=== PATIENT | female | born 1985 | race Caucasian/White ===

== ENCOUNTER 2018-09-23 08:47 | Emergency (ER) | payer OTHER ==
[~2018-09-23] VITALS: Ht 175.3 cm; Wt 118.2 kg
[2018-09-23 08:54] VITALS: BP 135/84
[2018-09-23] MEDS ORDERED: KETOROLAC 60 MG/2 ML VIAL IM ONE (09:15)
[2018-09-23 09:38] VITALS: BP 133/81
== END 2018-09-23 09:38 | disposition home or self-care (01) ==
LOC: MED 08:47
DX: J11.1 Influenza due to unidentified influenza virus with other respiratory manifestations (principal); J32.1 Chronic frontal sinusitis; I10 Essential (primary) hypertension; Z90.49 Acquired absence of other specified parts of digestive tract; Z88.1 Allergy status to other antibiotic agents; Z88.0 Allergy status to penicillin; Z88.2 Allergy status to sulfonamides
CPT/HCPCS: 96372; 99283; J1885

== ENCOUNTER 2019-07-13 17:14 | Emergency (ER) | payer OTHER ==
[~2019-07-13] VITALS: Ht 177.8 cm; Wt 118.8 kg
[2019-07-13 17:45] VITALS: BP 152/112
--- NOTE | 2019-07-13 18:35 | NUR ---
PT AMBULATED TO ER CHAIR C
--- NOTE | 2019-07-13 18:37 | NUR ---
C/O LOWER BACK PAIN X TODAY---DENIES RECENT INJURY PT STATED PT INITIATED WHILE SEATED AT WORK---AMBULATORY WITH STEADY GAIT
--- NOTE | 2019-07-13 18:55 | NUR ---
PA WITH PT
[2019-07-13] MEDS ORDERED: KETOROLAC 60 MG/2 ML VIAL IM ONE (19:00)
--- NOTE | 2019-07-13 19:38 | NUR ---
Patient discharged with v/s stable. Written and verbal after care instructions given and explained. Patient alert, oriented and verbalized understanding of instructions. Ambulatory with steady gait. All questions addressed prior to discharge. ID band removed. Patient advised to follow up with PMD. Rx of FLEXERIL, MOTRIN, MEDROL given. Patient educated on indication of medication including possible reaction and side effects. Opportunity to ask questions provided and answered.
[2019-07-13 19:39] VITALS: BP 155/98
== END 2019-07-13 19:39 | disposition home or self-care (01) ==
LOC: MED 17:14
DX: M54.6 Pain in thoracic spine (principal); I10 Essential (primary) hypertension; Z88.1 Allergy status to other antibiotic agents; Z88.0 Allergy status to penicillin; Z88.2 Allergy status to sulfonamides
CPT/HCPCS: 81002; 81025; 96372; 99283; J1885

== ENCOUNTER 2022-06-16 10:35 | Emergency (ER) | payer OTHER ==
[~2022-06-16] VITALS: Ht 172.7 cm; Wt 77.1 kg
[2022-06-16 10:40] VITALS: BP 136/67
[2022-06-16 10:47] VITALS: BP 136/67
[2022-06-16] MEDS ORDERED: MORPHINE SULFATE 4 MG/ML SYR IVP ONE (10:55)
[2022-06-16] MEDS ORDERED: KETOROLAC 30 MG/ML VIAL IVP ONE (10:55)
[2022-06-16 11:10] LABS: BASOPHILS # (AUTO) 0.1 K/uL (0.00-0.22); BASOPHILS % (AUTO) 0.8 % (0.0-2.0); EOSINOPHILS # (AUTO) 0.2 K/uL (0-0.4); EOSINOPHILS % (AUTO) 2.3 % (0.0-4.0); HEMATOCRIT 37.7 % (36-48); HEMOGLOBIN 12.7 g/dL (12.0-16.0); LYMPHOCYTES # (AUTO) 2.3 K/uL (2.5-16.5); LYMPHOCYTES % (AUTO) 29.3 % (20.5-51.1); MEAN CORPUSCULAR HEMOGLOBIN 29 pg (27-31); MEAN CORPUSCULAR HGB CONC 34 g/dL (33-37); MEAN CORPUSCULAR VOLUME 85.1 fL (80-94); MONOCYTES # (AUTO) 0.6 K/uL (0.8-1.0); MONOCYTES % (AUTO) 7.3 % (1.7-9.3); NEUTROPHILS # (AUTO) 4.7 K/uL (1.8-7.7); NEUTROPHILS % (AUTO) 60.3 % (42.2-75.2); PLATELET COUNT (AUTO) 440 K/uL (140-450); RED BLOOD CELL COUNT(AUTO) 4.43 MIL/uL (4.20-5.40); RED CELL DISTRIBUTION WIDTH 13.9 % (11.6-13.7); WHITE BLOOD COUNT (AUTO) 7.9 K/uL (4.8-10.8)
[2022-06-16 11:33] LABS: ALBUMIN 3.3 g/dL (3.4-5.0); ANION GAP 12.9 (8-16); ASPARTATE AMINOTRANSFERASE 32 U/L (15-37); CARBON DIOXIDE 28.4 mmol/L (21-32); CHLORIDE 105 mmol/L (98-107); CREATININE 0.7 mg/dL (0.6-1.3); GFR ARICAN-AMERICAN 122 mL/min (>90); GLUCOSE 112 mg/dL (74-106); POTASSIUM 4.3 mmol/L (3.5-5.1); SODIUM SERUM 142 mmol/L (136-145); TOTAL BILIRUBIN 0.2 mg/dL (0.0-1.0); UREA NITROGEN, BLOOD 16 mg/dL (7-18)
[2022-06-16] MEDS ORDERED: ACET-8386 PO (12:00)
[2022-06-16] MEDS ORDERED: OMEP40EC23 PO (12:00)
[2022-06-16] MEDS ORDERED: IBUP-2213 PO (12:00)
== END 2022-06-16 12:05 | disposition home or self-care (01) ==
LOC: MED 10:35
DX: N83.201 Unspecified ovarian cyst, right side (principal); I10 Essential (primary) hypertension; Z88.8 Allergy status to other drugs, medicaments and biological substances; Z88.0 Allergy status to penicillin; Z88.1 Allergy status to other antibiotic agents; Z88.2 Allergy status to sulfonamides; Z90.49 Acquired absence of other specified parts of digestive tract; Z98.890 Other specified postprocedural states
CPT/HCPCS: 36415; 74176; 80053; 81002; 81025; 83690; 84702; 85025; 96374; 99284; J2270

== ENCOUNTER 2022-06-20 07:43 | Emergency (ER) | payer OTHER ==
[~2022-06-20] VITALS: Ht 177.8 cm; Wt 83.9 kg
[~2022-06-20 07:43] MED LIST: ACET-8386 PO; IBUP-2213 PO; OMEP40EC23 PO
[2022-06-20 07:56] VITALS: BP 147/70
--- NOTE | 2022-06-20 07:59 | NUR ---
PT C/O EPIGASTRIC PAIN RADIATING TO BACK SINCE THIS AM. SEEN FRIDAY IN ED WITH SAME COMPLAINT.
[2022-06-20] MEDS ORDERED: FAMOTIDINE 20 MG/2 ML VIAL IVP ONE (08:00)
[2022-06-20] MEDS ORDERED: NACL 0.9% 1,000 ML IV SCH (08:00)
[2022-06-20] MEDS ORDERED: KETOROLAC 15 MG/ML VIAL IVP ONE (08:00)
[2022-06-20] MEDS ORDERED: MORPHINE SULFATE 4 MG/ML SYR IVP ONE (08:00)
[2022-06-20] MEDS ORDERED: NACL 0.9% 1,000 ML IV ONE (08:05)
[2022-06-20 08:33] LABS: BASOPHILS # (AUTO) 0.1 K/uL (0.00-0.22); BASOPHILS % (AUTO) 1.2 % (0.0-2.0); EOSINOPHILS # (AUTO) 0.2 K/uL (0-0.4); EOSINOPHILS % (AUTO) 2.1 % (0.0-4.0); HEMATOCRIT 37.6 % (36-48); HEMOGLOBIN 12.6 g/dL (12.0-16.0); LYMPHOCYTES # (AUTO) 2.7 K/uL (2.5-16.5); LYMPHOCYTES % (AUTO) 30.4 % (20.5-51.1); MEAN CORPUSCULAR HEMOGLOBIN 29 pg (27-31); MEAN CORPUSCULAR HGB CONC 34 g/dL (33-37); MEAN CORPUSCULAR VOLUME 85.8 fL (80-94); MONOCYTES # (AUTO) 0.7 K/uL (0.8-1.0); MONOCYTES % (AUTO) 7.4 % (1.7-9.3); NEUTROPHILS # (AUTO) 5.2 K/uL (1.8-7.7); NEUTROPHILS % (AUTO) 58.9 % (42.2-75.2); PLATELET COUNT (AUTO) 425 K/uL (140-450); RED BLOOD CELL COUNT(AUTO) 4.38 MIL/uL (4.20-5.40); RED CELL DISTRIBUTION WIDTH 14.3 % (11.6-13.7); WHITE BLOOD COUNT (AUTO) 8.9 K/uL (4.8-10.8)
[2022-06-20 08:54] LABS: ALBUMIN 3.1 g/dL (3.4-5.0); ANION GAP 11.6 (8-16); CARBON DIOXIDE 27.6 mmol/L (21-32); CREATININE 0.6 mg/dL (0.6-1.3); POTASSIUM 4.2 mmol/L (3.5-5.1); TOTAL BILIRUBIN 0.2 mg/dL (0.0-1.0)
--- NOTE | 2022-06-20 09:54 | NUR ---
PT BACK FROM CT
[2022-06-20] MEDS ORDERED: [UNRECOGNIZED DRUG - CODE] PO (10:33)
[2022-06-20] MEDS ORDERED: ACET500C86 PO (10:33)
[2022-06-20] MEDS ORDERED: OMEP40EC23 PO (10:33)
[2022-06-20 10:43] VITALS: BP 121/70
--- NOTE | 2022-06-20 10:44 | NUR ---
Patient discharged with v/s stable. Written and verbal after care instructions given and explained. Patient alert, oriented and verbalized understanding of instructions. Ambulatory with steady gait. All questions addressed prior to discharge. ID band removed. Patient advised to follow up with PMD. Rx of TYLENOL, PRILOSEC given. Patient educated on indication of medication including possible reaction and side effects. Opportunity to ask questions provided and answered.
[2022-06-20 11:20] LABS: BARBITURATE, URINE NEGATIVE ng/ml (NEG <=200); BENZODIAZEPINE, URINE NEGATIVE ng/mL (NEG <=200); CANNABINOID, URINE NEGATIVE ng/mL (NEG <=50); COCAINE, URINE NEGATIVE ng/mL (NEG <=300); OPIATE, URINE NEGATIVE ng/mL (NEG <=2000); PHENCYCLIDINE SCREEN,URINE NEGATIVE ng/mL (NEG <=25)
== END 2022-06-20 10:43 | disposition home or self-care (01) ==
LOC: MED 07:43
DX: N83.201 Unspecified ovarian cyst, right side (principal); K29.70 Gastritis, unspecified, without bleeding; I10 Essential (primary) hypertension; Z88.0 Allergy status to penicillin; Z88.8 Allergy status to other drugs, medicaments and biological substances; Z88.1 Allergy status to other antibiotic agents; Z88.2 Allergy status to sulfonamides; Z79.899 Other long term (current) drug therapy
CPT/HCPCS: 36415; 71045; 71275; 74174; 76856; 80053; 80305; 81025; 83690; 84702; 85025; 93976; 96361; 96374; 96375; 99285; J1885; J2270; J3490; J7030; Q0092; Q9967

== ENCOUNTER 2022-11-21 21:24 | Emergency (ER) | payer OTHER ==
[~2022-11-21] VITALS: Ht 177.8 cm; Wt 90.7 kg
[~2022-11-21 21:24] MED LIST changes: -ACET-8386 PO; +ACET-8905 PO; +ACET500C86 PO; +[UNRECOGNIZED DRUG - CODE] PO
[2022-11-21 21:25] VITALS: BP 134/88
[2022-11-21] MEDS ORDERED: ACETAMINOPHEN 325 MG TAB PO ONE (21:40)
[2022-11-21] MEDS ORDERED: FAMOTIDINE 20 MG TAB PO ONE (21:40)
[2022-11-21] MEDS ORDERED: ALUMINUM HYD/MAG/SIMETHICONE 30 ML UDC PO ONE (21:40)
[2022-11-21 22:04] LABS: BASOPHILS % (AUTO) 0.4 % (0.0-2.0); EOSINOPHILS # (AUTO) 0.1 K/uL (0-0.4); EOSINOPHILS % (AUTO) 0.8 % (0.0-4.0); HEMATOCRIT 38.4 % (36-48); HEMOGLOBIN 12.9 g/dL (12.0-16.0); LYMPHOCYTES # (AUTO) 3.1 K/uL (2.5-16.5); LYMPHOCYTES % (AUTO) 40.6 % (20.5-51.1); MEAN CORPUSCULAR HEMOGLOBIN 28 pg (27-31); MEAN CORPUSCULAR HGB CONC 34 g/dL (33-37); MEAN CORPUSCULAR VOLUME 82.2 fL (80-94); MONOCYTES # (AUTO) 0.5 K/uL (0.8-1.0); MONOCYTES % (AUTO) 6.9 % (1.7-9.3); NEUTROPHILS # (AUTO) 3.9 K/uL (1.8-7.7); NEUTROPHILS % (AUTO) 51.3 % (42.2-75.2); PLATELET COUNT (AUTO) 434 K/uL (140-450); RED BLOOD CELL COUNT(AUTO) 4.67 MIL/uL (4.20-5.40); RED CELL DISTRIBUTION WIDTH 15.3 % (11.6-13.7); WHITE BLOOD COUNT (AUTO) 7.6 K/uL (4.8-10.8)
[2022-11-21 22:19] LABS: ANION GAP 9.6 (8-16); CARBON DIOXIDE 30.2 mmol/L (21-32); CREATININE 0.8 mg/dL (0.6-1.3); POTASSIUM 3.8 mmol/L (3.5-5.1)
[2022-11-21 22:31] LABS: ALBUMIN 3.8 g/dL (3.4-5.0); TOTAL BILIRUBIN 0.3 mg/dL (0.0-1.0)
[2022-11-21] MEDS ORDERED: ACETAMINOPHEN 325 MG TAB ONE (22:45)
[2022-11-21] MEDS ORDERED: ALUMINUM HYD/MAG/SIMETHICONE 30 ML UDC ONE (22:46)
[2022-11-21] MEDS ORDERED: FAMOTIDINE 20 MG TAB ONE (22:47)
[2022-11-21] MEDS ORDERED: FAMO-90 PO (23:43)
[2022-11-21] MEDS ORDERED: ONDA-188 SL (23:43)
[2022-11-21 23:51] VITALS: BP 134/88
--- NOTE | 2022-11-21 23:51 | NUR ---
Patient discharged with v/s stable. Written and verbal after care instructions given and explained. Patient alert, oriented and verbalized understanding of instructions. Ambulatory with steady gait. All questions addressed prior to discharge. ID band removed. Patient advised to follow up with PMD. Rx of PEPCID AND ZOFRAN given. Patient educated on indication of medication including possible reaction and side effects. Opportunity to ask questions provided and answered.
--- NOTE | 2022-11-21 23:53 | NUR ---
PT VERBALIZED SHE IS UPSET WITH TREATMENT. I ASKED PT WHAT WE COULD DO TO HELP HER SHE STATED "I GUESS YOU GUYS CANT HELP ME, ILL CALL AND COMPLAIN ABOUT ALL OF YOU". ERMD MADE AWARE.
== END 2022-11-21 23:51 | disposition home or self-care (01) ==
LOC: MED 21:24
DX: R10.13 Epigastric pain (principal); Z79.899 Other long term (current) drug therapy; Z79.1 Long term (current) use of non-steroidal anti-inflammatories (NSAID); Z79.891 Long term (current) use of opiate analgesic; Z88.1 Allergy status to other antibiotic agents; Z88.0 Allergy status to penicillin; Z88.2 Allergy status to sulfonamides
CPT/HCPCS: 36415; 80053; 83690; 85025; 99283